=== PATIENT | female | born 1940 | race Caucasian/White ===

== ENCOUNTER 2016-08-28 10:07 | Inpatient (IN) | payer MEDICARE, BC ==
[~2016-08-28] VITALS: Ht 162.6 cm; Wt 63.0 kg
[2016-09-25] VITALS (10 sets, daily range): BP systolic 95–120; BP diastolic 51–76; PULSE 47–76; TEMP 97–98.4
[2016-09-25] MEDS ORDERED: SYNTHROID 0.10.15 MG PO (07:38)
[2016-09-25] MEDS ORDERED: MOBIC 7.5MG7.5 MG PO (07:39)
[2016-09-25] MEDS ORDERED: ALEVE 220MG220 MG PO (07:39)
[2016-09-25] MEDS ORDERED: VITAMINC1000TA PO (07:40)
[2016-09-25] MEDS ORDERED: FERROUS SU325 MG/TAB PO (07:41)
[2016-09-25] MEDS ORDERED: FOLIC ACID 40400 MCG PO (07:41)
[2016-09-26 00:20] VITALS: BP 102/50; PULSE 68; TEMP 98
[2016-09-26 04:25] VITALS: BP 99/49; PULSE 69; TEMP 98.2
[2016-09-26 06:14] LABS: HEMATOCRIT 35.5 % (37.0-47.0); HEMOGLOBIN 11.9 g/dl (12.5-16.0)
[2016-09-26 07:40] VITALS: BP 100/51; PULSE 82; TEMP 98.2
[2016-09-26 11:49] VITALS: BP 108/55; PULSE 65
[2016-09-26 16:07] VITALS: BP 109/47; PULSE 71
[2016-09-26 20:30] VITALS: BP 107/52; PULSE 64; TEMP 98.2
[2016-09-27 00:38] VITALS: BP 103/54; PULSE 65; TEMP 98.2
[2016-09-27 04:00] VITALS: BP 129/63; PULSE 79; TEMP 98.1
[2016-09-27] MEDS ORDERED: ROXICODONE 55 MG/TAB PO (06:21)
[2016-09-27] MEDS ORDERED: NORCO 325 MG-7.1 TAB PO (06:21)
[2016-09-27] MEDS ORDERED: TYLENOL 500MG500 MG PO (06:22)
[2016-09-27] MEDS ORDERED: COLACE 100100 MG/CAP PO (06:23)
[2016-09-27] MEDS ORDERED: ASPI325T6 PO (06:26)
[2016-09-27 07:23] VITALS: BP 121/54; PULSE 83
[2016-09-27 07:47] LABS: HEMOGLOBIN 11.4 g/dl (12.5-16.0)
[2016-09-27 07:48] LABS: HEMATOCRIT 34.3 % (37.0-47.0)
[2016-09-27 11:53] VITALS: BP 118/58; PULSE 76
== END 2016-09-27 14:39 | disposition home or self-care (01) | DRG 470 ==
LOC: JCC 09-25 06:49
PROVIDERS: Orthopaedic Surgery
PROC: 0SRC0J9 Replacement of Right Knee Joint with Synthetic Substitute, Cemented, Open Approach (ICD-10-PCS; principal; 2016-09-25 10:45)
DX: M17.11 Unilateral primary osteoarthritis, right knee (principal); Z87.891 Personal history of nicotine dependence
CPT/HCPCS: A4315; A9284; C1713; C1776; J0690; J1100; J2250; J2405; J2704; J3010; J7120

== ENCOUNTER → 2018-03-06 | Outpatient (CLI) | payer MEDICARE, BC ==
[~2018-03-06] MED LIST: ALEVE 220MG220 MG PO; ASPI325T6 PO; COLACE 100100 MG/CAP PO; FERROUS SU325 MG/TAB PO; FOLIC ACID 40400 MCG PO; MOBIC 7.5MG7.5 MG PO; NORCO 325 MG-7.1 TAB PO; ROXICODONE 55 MG/TAB PO; SYNTHROID 0.10.15 MG PO; TYLENOL 500MG500 MG PO; VITAMINC1000TA PO
== END ==
LOC: MC.RAD 10:50
DX: Z12.31 Encounter for screening mammogram for malignant neoplasm of breast (principal)

== ENCOUNTER → 2019-05-01 | Outpatient (CLI) | payer MEDICARE, BC | LOC: MC.RAD 07:57 | DX: Z12.31 Encounter for screening mammogram for malignant neoplasm of breast (principal) ==

== ENCOUNTER → 2020-05-13 | Outpatient (CLI) | payer MEDICARE, BC | LOC: MC.RAD 06:57 | DX: Z12.31 Encounter for screening mammogram for malignant neoplasm of breast (principal) ==

== ENCOUNTER → 2021-07-19 | Outpatient (CLI) | payer MEDICARE, BC | LOC: MC.RAD 10:44 | DX: Z12.31 Encounter for screening mammogram for malignant neoplasm of breast (principal) ==